=== PATIENT | female | born 1970 | race Caucasian/White ===

== ENCOUNTER 2018-12-05 13:00 | Emergency (ER) | payer BC ==
[~2018-12-05] VITALS: Ht 167.6 cm; Wt 60.7 kg
[2018-12-05 13:05] VITALS: Ht 167.6 cm; Wt 60.7 kg
[2018-12-05] MEDS ORDERED: OLANZAPINE (ODT) 5 MG TAB ODT ONE (14:00)
--- NOTE | 2018-12-05 14:07 | PSY ---
Date/Time of Note Date/Time of Note DATE: 12/05/18 TIME: 16:59 Psychiatric Subjective Eval Consent Pt consented to telemedicine: Yes Subjective Evaluation Patient location: emergency Chief Complaint: Sent from MD for eval confusion/ psych eval hx of bipolar disrder History of present illness 48 yo female with ho bipolar disorder called her therapist today saying that she was feeling confused and anxious. MD spoke with pt. She reports she is "slurring" her speech, staggering, and has a racing heart. Reports confusion and "losing time." Uses [employer]. 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 Past Psych Hx: denies ho psych admits or suicide attempts PMHx: denies Allergies: penicillins, codeine Meds: lamictal, gabapentin, "antipsychotic" Reports she lives with parents MSE: casually groomed, concerned, labile, some tearfulness, dysthymic, normal speech, organized, many somatic complaints, no si/hi Imp: 48 yo female does not appear to have acute safety issues parallel hx from therapist to confirm no safety issues or grave disability; if not, discharge home with immediate follow up with therapist and psychiatrist consider zyprexa 2.5mg po bid uhcg utox Allergies: Coded Allergies: codeine (Verified Allergy, Severe, 12/05/18) Penicillins (Verified Allergy, Intermediate, 12/05/18) Psychiatric Objective Eval Mental Status Examination: Laboratory Results Laboratory Tests Test 12/05/18 13:45 White Blood Count 7.9 10^3/ul Red Blood Count 4.59 10^6/ul Hemoglobin 14.3 g/dl Hematocrit 42.9 % Mean Corpuscular Volume 93.5 fl Mean Corpuscular Hemoglobin 31.2 pg Mean Corpuscular Hemoglobin Concent 33.3 g/dl Red Cell Distribution Width 13.0 % Platelet Count 279 10^3/UL Mean Platelet Volume 9.1 fl Immature Granulocytes % 0.300 % Neutrophils % 70.2 % Lymphocytes % 24.1 % Monocytes % 4.1 % Eosinophils % 0.4 % Basophils % 0.9 % Nucleated Red Blood Cells % 0.0 /100WBC Immature Granulocytes # 0.020 10^3/ul Neutrophils # 5.6 10^3/ul Lymphocytes # 1.9 10^3/ul Monocytes # 0.3 10^3/ul Eosinophils # 0.0 10^3/ul Basophils # 0.1 10^3/ul Nucleated Red Blood Cells # 0.0 10^3/ul Assessment and Plan Recommendation/Plan Multiple antipsychotics: No Discharge Disposition: Other Legal Status: Voluntary SMITHA MEYER Dec 05, 2018 14:07
--- NOTE | 2018-12-05 15:50 | ERD ---
ER Documentation Chief Complaint Chief Complaint Sent from for eval confusion/ psych eval hx of bipolar disrder HPI Patient is a 48-year-old female with bipolar disorder who presents saying "my heart is racing". The patient said that she was staggering and almost falling down. She said that she does not know what day it is. She said that it started this morning. She called her therapist who told her to go to the emergency department. She has bipolar disorder and is tearful. She has had thoughts of suicide in the past but none currently. She says "I feel like I am dying and I think I am having a psychotic break". Upon review of old medical records this is the patient's first visit to the emergency department. ROS All systems reviewed and are negative except as per history of present illness. Medications Home Meds Unable to Obtain Active Prescriptions or Reported Meds Allergies Allergies: Coded Allergies: codeine (Verified Allergy, Severe, 12/05/18) Penicillins (Verified Allergy, Intermediate, 12/05/18) PMhx/Soc Medical and Surgical Hx: pt denies Surgical Hx Hx Miscellaneous Medical Probl: Yes (bipolar) Hx Alcohol Use: No Hx Substance Use: No Hx Tobacco Use: No Smoking Status: Never smoker FmHx Family History: diabetes Physical Exam Vitals Vital Signs Date Temp Pulse Resp B/P (MAP) Pulse Ox O2 O2 Flow FiO2 Time Delivery Rate 12/05/18 76 20 154/72 97 Room Air 15:54 (99) 12/05/18 98.8 97 20 173/94 96 13:05 (120) Physical Exam Const: No acute distress Head: Atraumatic Eyes: Normal Conjunctiva ENT: Normal External Ears, Nose and Mouth. Neck: Full range of motion. No meningismus. Resp: Clear to auscultation bilaterally Cardio: Regular rate and rhythm, no murmurs Abd: Soft, non tender, non distended. Normal bowel sounds Skin: No petechiae or rashes Back: No midline or flank tenderness Ext: No cyanosis, or edema Neur: Awake and alert, cranial nerves II through XII are intact, no slurred speech Psych: Tearful, depressed affect, no suicidal or homicidal ideation Result Diagram: 12/05/18 1345 12/05/18 1345 Results 24 hrs Laboratory Tests Test 12/05/18 13:45 12/05/18 15:00 12/05/18 15:04 White Blood Count 7.9 10^3/ul Red Blood Count 4.59 10^6/ul Hemoglobin 14.3 g/dl Hematocrit 42.9 % Mean Corpuscular Volume 93.5 fl Mean Corpuscular Hemoglobin 31.2 pg Mean Corpuscular 33.3 g/dl Hemoglobin Concent Red Cell Distribution Width 13.0 % Platelet Count 279 10^3/UL Mean Platelet Volume 9.1 fl Immature Granulocytes % 0.300 % Neutrophils % 70.2 % Lymphocytes % 24.1 % Monocytes % 4.1 % Eosinophils % 0.4 % Basophils % 0.9 % Nucleated Red Blood Cells % 0.0 /100WBC Immature Granulocytes # 0.020 10^3/ul Neutrophils # 5.6 10^3/ul Lymphocytes # 1.9 10^3/ul Monocytes # 0.3 10^3/ul Eosinophils # 0.0 10^3/ul Basophils # 0.1 10^3/ul Nucleated Red Blood Cells # 0.0 10^3/ul Sodium Level 141 mmol/L Potassium Level 3.9 mmol/L Chloride Level 101 mmol/L Carbon Dioxide Level 30 mmol/L Anion Gap 10 Blood Urea Nitrogen 17 mg/dl Creatinine 0.95 mg/dl Est Glomerular Filtrat > 60 mL/min Rate mL/min Glucose Level 124 mg/dl Calcium Level 9.8 mg/dl Total Bilirubin 0.2 mg/dl Direct Bilirubin 0.00 mg/dl Indirect Bilirubin 0.2 mg/dl Aspartate Amino 23 IU/L Transf (AST/SGOT) Alanine 12 IU/L Aminotransferase (ALT/SGPT) Alkaline Phosphatase 61 IU/L Total Protein 8.0 g/dl Albumin 4.8 g/dl Globulin 3.20 g/dl Albumin/Globulin Ratio 1.50 Salicylates Level < 1.0 mg/dl Acetaminophen Level < 10.0 ug/ml Ethyl Alcohol Level < 10.0 mg/dl Urine Color YELLOW Urine Clarity CLOUDY Urine pH 5.0 Urine Specific [place] 1.024 Urine Ketones 1+ mg/dL Urine Nitrite NEGATIVE mg/dL Urine Bilirubin NEGATIVE mg/dL Urine Urobilinogen 2+ mg/dL Urine Leukocyte Esterase NEGATIVE Jazmin/ul Urine Microscopic RBC 62 /HPF Urine Microscopic WBC 7 /HPF Urine Squamous Epithelial Cells MODERATE /HPF Urine Bacteria FEW /HPF Urine Mucus MANY /HPF Urine Hemoglobin 3+ mg/dL Urine Glucose NEGATIVE mg/dL Urine Total Protein 1+ mg/dl Urine Opiates Screen Negative Urine Barbiturates Negative Urine Amphetamines Screen Negative Urine Benzodiazepines Screen Negative Urine Cocaine Screen Negative Urine Cannabinoids Positive POC Beta HCG, Qualitative NEGATIVE Current Medications Medications Dose Sig/Angélica Start Time Status Last (Trade) Ordered Route PRN Stop Time Admin Dose Reason Admin Olanzapine 5 mg ONCE ONCE 12/05/18 DC 12/05/18 (Zyprexa ODT 14:00 14:57 Zydis) 12/05/18 14:01 Procedures/MDM EKG read by me: Rate/Rhythm: Regular rate and rhythm at a rate of 84 Intervals: Normal Impression: No evidence of ischemia or arrhythmia CT brain negative per radiology. Smoking Cessation Therapy: Pt. was lectured for greater than 3 minutes on the health risks of continued smoking and the benefits of cessation. Patient is a 48-year-old female with bipolar disorder who presents with a de pressed affect. She was seen by psychiatry who does not feel that she requires a 5150 hold at this time. She was medically cleared with laboratory studies and CT of the brain. She was given Zyprexa. She will be discharged home. She can follow-up with her primary doctor and her psychiatrist within the next 24-48 hours for reevaluation. She can return sooner for any worsening symptoms. Departure Diagnosis: Primary Impression: Bipolar 1 disorder Condition: Fair Patient Instructions: Bipolar Disorder Referrals: Your doctor Additional Instructions: Call your primary care doctor TOMORROW for an appointment during the next 1-2 days.See the doctor sooner or return here if your condition worsens before your appointment time. OIL BUENROSTRO MD Dec 05, 2018 15:50
[2018-12-05 15:54] VITALS: BP 154/72; PULSE 76; RESP 20
== END 2018-12-05 15:55 | disposition home or self-care (01) ==
LOC: E/R 13:00
DX: F31.9 Bipolar disorder, unspecified (principal)
CPT/HCPCS: 36415; 70450; 80053; 80306; 80307; 81001; 81025; 85025; 93005; Z7502; Z7610